=== PATIENT | male | born 1995 | race Caucasian/White ===

== ENCOUNTER 2016-10-13 02:30 | Emergency (ER) | payer OTHER ==
[2016-10-13 02:36] VITALS: PULSE 98
--- NOTE | 2016-10-13 03:04 | EDPHY ---
H & P Stated Complaint: L arm laceration - fell through glass coffee table, CI Time Seen by Provider: 10/13/16 02:42 HPI/ROS: HPI: The patient presents with left arm laceration which occurred about 45 minutes prior to arrival. He was drinking up after tripping your a glass table. His elbow went through the glass of a table and he sustained multiple lacerations to his left arm. He denies any foreign body sensation. He denies any numbness or tingling to his hand or arm though he does say he has some chronic numbness in both of his hands. He has pain which is moderate in severity and does not radiate. REVIEW OF SYSTEMS Constitutional: No fever, no chills. Eyes: No discharge. ENT: No sore throat. Cardiovascular: No chest pain, no palpitations. Respiratory: No cough, no shortness of breath. Gastrointestinal: No abdominal pain, no vomiting. Genitourinary: No hematuria. Musculoskeletal: No back pain. Skin: No rashes. Neurological: No headache. PMHx: Healthy college student TRAUMA PHYSICAL General Appearance: Alert, no distress Head: Atraumatic Eyes: Pupils equal, round, reactive ENT, Mouth: No hemotypanium, no oral trauma Neck: Non- tender, trachea midline Respiratory: No chest wall tenderness, no subcutaneous air, lungs clear bilaterallty Cardiovascular: Regular rate and rhythm Abdomen: Abdomen is soft and non-tender, pelvis stable Skin: Multiple abrasions to his back Back: No midline T/L/S pain Extremities: Left arm with multiple lacerations- 4 cm laceration just distal to posterior elbow which is gaping with exposed muscle belly, a 4 cm laceration proximal to elbow which is longitudinal, 2 cm C-shaped laceration of the forearm , 2 cm C-shaped laceration of the forearm Neurological: A&Ox3, GCS=15,normal motor function with 5/5 strength in all 4 extremities, normal sensory exam Source: Patient Exam Limitations: No limitations - Personal History Current Tetanus/Diphtheria Vaccine: Unsure - Medical/Surgical History Hx Asthma: No Hx Chronic Respiratory Disease: No Hx Diabetes: No Hx Cardiac Disease: No Hx Renal Disease: No Hx Cirrhosis: No Hx Alcoholism: Yes Hx HIV/AIDS: No Hx Splenectomy or Spleen Trauma: No Other PMH: PMHx: mono 2012. PSHx: denies - Social History Smoking Status: Current every day smoker Constitutional: Initial Vital Signs Temperature (C) 36.7 C 10/13/16 02:32 Heart Rate 98 10/13/16 02:32 Respiratory Rate 16 10/13/16 02:32 Blood Pressure 110/75 10/13/16 02:32 O2 Sat (%) 98 10/13/16 02:32 O2 Delivery Mode Room Air Allergies/Adverse Reactions: No Known Allergies Allergy (Unverified 10/13/16 02:32) Home Medications: Medication Instructions Recorded NK [No Known Home Meds] 10/13/16 Medical Decision Making - Diagnostics Imaging Results: X-ray left elbow two views shows no fracture, no dislocation, interpreted by me , radiology interpretation pending. There is a defect seen in the mid shaft radius, however I believe that this is artifact. I have examined the patient, he does not have any tenderness in this region. Procedures: LACERATION REPAIR #1 Procedure: Laceration repair. Verbal consent was obtained from the patient. The linear 4 cm laceration on the left forearm was anesthetized using lidocaine with epinephrine. The wound was scrubbed, draped and explored to its base with a gloved finger. There was muscle belly involved , tendon injury cannot be ruled out, The wound required extensive debridement . The wound was repaired with a combination of 4. 0 Vicryl simple interrupted deep sutures and 4. 0 nylon simple interrupted and horizontal mattress superficial sutures. The wound repair was complex. The procedure was performed by myself. LACERATION REPAIR #2 Procedure: Laceration repair. Verbal consent was obtained from the patient. The linear 4 cm laceration on the left arm was anesthetized using lidocaine with epinephrine. The wound was scrubbed, draped and explored to its base with a gloved finger. There were no deep structures involved. No tendon injury was identified. . The wound was repaired with horizontal mattress sutures with 4.0 nylon. The wound repair was simple. The procedure was performed by myself. LACERATION REPAIR #3 Procedure: Laceration repair. Verbal consent was obtained from the patient. The C-shaped 2 cm laceration on the left forearm was anesthetized using lidocaine with epinephrine. The wound was scrubbed, draped and explored to its base with a gloved finger. There were no deep structures involved. No tendon injury was identified. . The wound was repaired with 1 deep suture of 4 0 Vicryl and for 3 horizontal mattress sutures with 4.0 nylon superficially. The wound repair was simple. The procedure was performed by myself. LACERATION REPAIR #4 Procedure: Laceration repair. Verbal consent was obtained from the patient. The C-shaped 2 cm laceration on the left forearm was anesthetized using lidocaine with epinephrine. The wound was scrubbed, draped and explored to its base with a gloved finger. There were no deep structures involved. No tendon injury was identified. . The wound was repaired with 4.0 nylon horizontal mattress sutures. The wound repair was simple. The procedure was performed by myself. Differential Diagnosis: Healthy 21-year-old male, drinking alcohol with a mechanical fall, landing on his left elbow into a glass table. He has sustained multiple lacerations. He is neurovascularly intact. Differential diagnosis includes elbow laceration, joint space involvement, tendon injury, foreign body retained. In the emergency department, x-rays were obtained and were unremarkable. His laceration was irrigated extensively and repaired by me. In the most significant laceration there appears to be in injury to the muscle belly. Because of this, I have instructed that the patient follow up with orthopedic/ hand in 1-2 weeks. His sutures will need to be removed in 7-10 days and he can return here for that as well. He was placed in a sling and discharged with follow-up in 7 days for suture removal. - Data Points Medications Given: Discontinued Medications Hydrocodone Bitart/Acetaminophen ([place] 5/325) 2 tab PO EDNOW ONE Stop: 10/13/16 03:30 Last Admin: 10/13/16 03:45 Dose: 2 tab Departure - Departure Disposition: Home, Routine, Self-Care Clinical Impression: Laceration of arm, left, multiple sites, with tendon involvement Qualifiers: Encounter type: initial encounter Qualified Code(s): S41.112A - Laceration without foreign body of left upper arm, initial encounter Condition: Good Instructions: Care For Your Stitches (ED), Laceration (ED) Additional Instructions: Please keep the wound clean and dry for the next 48 hours. Then it is okay to get it wet but keep it covered with antibiotic ointment at other times. Please keep the sling on to help the wound heal. Because there was an injury to the muscle, I do recommend that you follow up with Orthopedics and I have given you the phone number to call for an appointment with Dr. Heaton. Please watch out for any redness, swelling, worsening pain, drainage from the wound as this may be sign of an infection. Referrals: Kenny Heaton MD [Medical Doctor] - As per Instructions
[2016-10-13] MEDS ORDERED: HYDROCODONE/APAP 5/325 TAB PO ONE (03:29)
[2016-10-13] MEDS ORDERED: SKIN ADHESIVE (DERMABOND) 1 EACH TP ONE (04:27)
[2016-10-13 06:07] VITALS: BP 143/86; RESP 20; TEMP 97.9; O2SAT 92
== END 2016-10-13 05:50 | disposition home or self-care (01) ==
PROC: 0HQCXZZ Repair Left Upper Arm Skin, External Approach (ICD-10-PCS; principal; 2016-10-13)
DX: S41.112A Laceration without foreign body of left upper arm, initial encounter (principal); F17.200 Nicotine dependence, unspecified, uncomplicated; W25.XXXA Contact with sharp glass, initial encounter
CPT/HCPCS: A4565